=== PATIENT | male | born 1955 | race Asian ===

== ENCOUNTER 2022-09-30 23:43 | Emergency (ER) | payer OTHER ==
[~2022-09-30] VITALS: Ht 172.7 cm; Wt 79.8 kg
[2022-10-01] VITALS: TEMP 97.7
[2022-10-01 01:13] LABS: PLATELET COUNT 284 K/uL (142-355)
[2022-10-01 01:29] LABS: POTASSIUM 4.2 mmol/L (3.6-5.2)
[2022-10-01 02:00] VITALS: BP 151/73
[2022-10-01] MEDS ORDERED: LIPITOR40 MG PO (07:47)
[2022-10-01] MEDS ORDERED: FLONASE AL50 MCG/ACT NAS (07:48)
[2022-10-01] MEDS ORDERED: COZAAR25 MG PO (07:48)
[2022-10-01] MEDS ORDERED: TRAZ50TA36 PO (07:49)
[2022-10-01] MEDS ORDERED: BENZ1TAB43 PO (07:50)
[2022-10-01] MEDS ORDERED: DIVALPROEX125 MG PO (07:50)
[2022-10-01] MEDS ORDERED: DIVALPROEX250 M1 PO (07:51)
[2022-10-01] MEDS ORDERED: DIPH50IN IM (07:54)
[2022-10-01] MEDS ORDERED: EYE OPTH (07:58)
[2022-10-01] MEDS ORDERED: IBU-200200 MG PO (08:03)
== END 2022-10-01 02:00 | disposition other institution (70) ==
LOC: ED 23:43
PROVIDERS: Family Medicine
DX: F29 Unspecified psychosis not due to a substance or known physiological condition (principal); Z02.79 Encounter for issue of other medical certificate
CPT/HCPCS: 80053; 85027; 87635; 93005; 99283; U0003